=== PATIENT | female | born 1990 | race Caucasian/White ===

== ENCOUNTER → 2018-10-22 | Outpatient (CLI) | payer SELFPAY ==
[~2018-10-22] MED LIST: LEVO25TA61 PO; TRAN650T5 PO
--- NOTE | 2018-10-22 15:00 | RADIOLOGY IMAGING REPORT ---
FACILITY: [facility] - [place]IENT NAME: Lisa Noyola : 1990 MR: [id number] V: [id number] EXAM DATE: ORDERING PHYSICIAN: BRENDAN MORENO TECHNOLOGIST: Location: [facility] - [place] Patient: Lisa Noyola : 1990 Visit/Account:[id number] Date of Sevice: 10/22/2018 PELVIC HISTORY: Vaginal bleeding between periods with pelvic pain TECHNIQUE: Transvaginal and transabdominal ultrasound pelvis. To evaluate the pelvic anatomy COMPARISON: None. FINDINGS: Uterus: ; 7.7 cm length x 3.3 cm AP x 4.4 cm transverse. Myometrium: Unremarkable. Endometrium: There are two contiguous echogenic foci noted within the endometrial canal one measuring 5.5 mm x 5.3 mm x 9.5 mm and one measuring 8.6 mm x 6 mm x 10.4 mm; double thickness 9.5 mm. Cervix: Grossly negative. Ovaries: Right - 3.4 x 2.1 x 3.2 cm contains multiple follicles. The largest measures 1.6 cm in diameter Left - 2.5 x 1.4 x 3.3 cm and contains multiple follicles the largest measuring 9 mm in diameter Blood flow is documented in each ovary by duplex Doppler ultrasound. Adnexa: Grossly unremarkable. Free pelvic fluid: None. IMPRESSION: There are two contiguous echogenic foci within the endometrial canal as described above. These may r epresent fibroids, endometrial polyps versus other endometrial masses. Small bilateral ovarian cysts Report Dictated By: Vee Berrios MD at 10/22/2018 2:40 PM Report E-Signed By: Vee Berrios MD at 10/22/2018 2:55 PM WSN:[email or web address]
== END ==
LOC: US 12:45
PROVIDERS: ATTEND Obstetrics & Gynecology
DX: N83.291 Other ovarian cyst, right side (principal); N83.292 Other ovarian cyst, left side; N85.8 Other specified noninflammatory disorders of uterus
CPT/HCPCS: 76856

== ENCOUNTER → 2018-11-17 | Outpatient (CLI) | payer SELFPAY ==
[~2018-11-17] MED LIST changes: +IOPAMIDOL-200 50 ML VIAL IS ONE
--- NOTE | 2018-11-17 11:37 | Post Operative Note ---
Operative Note - MANAGER MAC Operative Day Date: November 17, 2018 Physicians Surgeon: Dr. 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 possible bicornuate vs. arcuate vs uterine septum Procedure(s): HSG Specimen Removed:(Maybe N/A): n/a Complications: none pt tolerated well Fluids Fluids: no IVF, used approximately 10 cc of IsoVue 200 Estimated Blood Loss: none Dictated Date OP Note Dictated: November 17, 2018 BRENDAN SAHNI DO November 17, 2018 11:37
--- NOTE | 2018-11-17 14:20 | OPERATIVE REPORT 1 ---
EVENT DATE: November 17, 2018 SURGEON: Nicole Sahni DO ANESTHESIA: None. PREOPERATIVE DIAGNOSIS Secondary infertility. POSTOPERATIVE DIAGNOSIS Secondary infertility with possible bicornuate versus arcuate versus uterine septum. PROCEDURE PERFORMED Hysterosalpingogram. ESTIMATED BLOOD LOSS None. TISSUES REMOVED None. COMPLICATIONS None. DISPOSITION Stable to recovery room. DESCRIPTION OF PROCEDURE After informed consent was obtained and urine test was noted to be negative, the patient was placed on the fluoroscopy table in the dorsal lithotomy position. Her cervix was then visualized after placement of a Graves speculum. Cervix was swabbed with Betadine and then a small catheter was placed inside the cervix. Catheter was confirmed to be in the right position and a small balloon was inflated to provide backflow of the Isovue. After the catheter was placed, fluoroscopy was began and Isovue 200 was pushed into the uterine cavity. The uterine cavity distended appropriately and there was a somewhat bicornuate versus arcuate versus possibly uterine septum noted in the cavity. Patient has no history of this and there are no findings to correlate with ultrasound. I suspect possible arcuate appearance. There was also fallopian tube spillage noted on both the right and the left side. An otherwise normal appearing HSG. The fluoroscopy was turned off at this time and the catheter was removed. The speculum was also removed. Patient tolerated the procedure well. Sponge, lap and instrument counts were correct and she was discharged home in stable condition. MARIUSZ
--- NOTE | 2018-11-17 15:13 | RADIOLOGY IMAGING REPORT ---
FACILITY: [facility] - [place] PATIENT NAME: Lisa Noyola : 1990 MR: [id number] V: [id number] EXAM DATE: ORDERING PHYSICIAN: BRENDAN MORENO TECHNOLOGIST: Location: [facility] - [place] Patient: Lisa Noyola : 1990 Visit/Account:[id number] Date of Sevice: 11/17/2018 ADDENDUM #1 ADDENDUM: The dose area product was 36.5 micro-Gross per meter squared Report Dictated By: Vee Berrios MD at 11/20/2018 8:21 AM Report E-Signed By: Vee Berrios MD at 11/20/2018 8:22 AM ORIGINAL REPORT Exam type: XR HYSTEROSALPINGOGRAM History: IRREGULAR MENSTRUATION, UNSPECIFIED Comparison: Pelvic ultrasound October 22, 2018. Findings: The hysterosalpingogram was performed by . Fluoroscopic assistance was provided. 10 mL o f Isovue-200 was instilled into the endometrial cavity. There is bilateral spillage of contrast from the distal portion of both fallopian tubes which did not appear dilated. Two separate rounded filli ng defects are identified in the right horn of the endometrial cavity IMPRESSION: 1. Fallopian tubes appear patent bilaterally There are two rounded filling defects identified in the right horn of the endometrial cavity. These may represent polyps, fibroids or other endometrial pathology Report Dictated By: Vee Berrios MD at 11/17/2018 3:01 PM Report E-Signed By: Vee Berrios MD at 11/17/2018 3:08 PM WSN:[email or web address]
== END ==
LOC: RAD 02:16
PROVIDERS: ATTEND Obstetrics & Gynecology
DX: R94.8 Abnormal results of function studies of other organs and systems (principal)
CPT/HCPCS: 58340; 74740; 81025; Q9966